=== PATIENT | female | born 1965 | race Two or more races ===

== ENCOUNTER 2016-07-08 19:11 | Emergency (ER) | payer BC ==
[~2016-07-08] VITALS: Ht 162.6 cm; Wt 122.7 kg
[2016-07-08 20:12] LABS: HEMATOCRIT 44.1 % (36.0-46.0); MCH 26.9 PG (29.0-34.0); MCHC 33.1 G/DL (30.0-36.0); MCV 81.4 FL (83-99); MEAN PLAT.VOLUME 10.1 uM^3 (9.5-12.4); PLATELET COUNT 304 K/uL (156-360); RBC DIS.WIDTH-CV 15.5 % (11.8-14.6); RBC DIS.WIDTH-SD 46.5 % (39-53); RED BLOOD COUNT 5.42 M/uL (3.80-5.20); WHITE BLOOD COUNT 7.9 K/uL (4.1-10.2)
[2016-07-08 20:25] LABS: CHLORIDE 106 mEq/L (99-109); SODIUM 141 mEq/L (136-147)
[2016-07-08 20:27] LABS: GLUCOSE 96 mg/dL (70-99)
[2016-07-08 20:28] LABS: ANION GAP 9 MEQ/L (2-14)
[2016-07-08 20:29] LABS: TOTAL BILIRUBIN 1.2 mg/dL (0.0-1.0)
[2016-07-08 20:31] LABS: ALKALINE PHOSPHATASE 98 IU/L (3-129); GFR ESTIMATE (CALCULATED) > 59 mL/min/
[2016-07-08 20:32] LABS: UREA NITROGEN (BUN) 8 mg/dL (9-23)
[2016-07-08 20:41] LABS: QUANTITATIVE HCG < 4.0 MIU/ML
[2016-07-08 20:42] LABS: TROP-I INTERPRETATION NEGATIVE; TROPONIN-I < 0.01 ng/mL (0.0-0.30)
[2016-07-08 21:16] LABS: ADD MIUA? YES; BILIRUBIN NEGATIVE; BLOOD LARGE; COLOR YELLOW ((YELLOW)); GLUCOSE (STRIP) NEGATIVE; KETONES 20; LEUKOCYTES NEGATIVE; NITRITE NEGATIVE; PROTEIN (STRIP) 30; SPECIFIC GRAVITY 1.019 (1.000-1.030); UROBILINOGEN 0.2 MG/DL (0.2-1.0)
[2016-07-08 21:40] LABS: BACTERIA RARE /HPF; EPITHELIAL CELLS 1+ /HPF; MUCUS TRACE /LPF; RED BLOOD CELLS TNTC /HPF (0-5); UCUL ADDED? NO; WHITE BLOOD CELLS NONE SEEN /HPF (0-5)
[2016-07-08] MEDS ORDERED: ZOFRAN ODT8 MG PO (23:26)
[2016-07-08 23:36] VITALS: BP 120/73
== END 2016-07-08 23:41 | disposition home or self-care (01) ==
LOC: EME 19:11
DX: R10.9 Unspecified abdominal pain (principal); R19.7 Diarrhea, unspecified; R11.0 Nausea; R51 Headache; M54.5 Low back pain; H53.8 Other visual disturbances
CPT/HCPCS: 74176; 80053; 81003; 84484; 84702; 85027; 93005; 99281; 99284